=== PATIENT | female | born 1975 | race Caucasian/White ===

== ENCOUNTER 2018-04-23 12:46 | Emergency (ER) | payer BC ==
[2018-04-23 12:54] VITALS: BP 116/69; PULSE 62; RESP 16; TEMP 98.2; O2SAT 98
[2018-04-23] MEDS ORDERED: Tdap Vaccine 0.5 ml Vial (10-64 yrs) IM ONE ×2 (13:15→13:27)
--- NOTE | 2018-04-23 13:24 | ED PDOC ---
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 Patient states she hit toe against the edge of the table yesterday. She has acrylic nail in place over her own toenail and states the acrylic nail and her own toenail are loose and lifting off of her skin. Patient has not taken any meds for pain relief. She is not sure of her last tetanus booster. PMD: Yesenia Robledo Past Medical History Reviewed: Historical Data, Nursing Documentation, Vital Signs Vital Signs: Last Vital Signs Temp 98.2 F 04/23/18 12:50 Pulse 62 04/23/18 12:50 Resp 16 04/23/18 12:50 BP 116/69 04/23/18 12:50 Pulse Ox 98 04/23/18 12:50 - Medical History PMH: No Chronic Diseases - Family History Family History: States: No Known Family Hx - Living Arrangements Living Arrangements: With Family - Social History Current smoker - smoking cessation education provided: No Alcohol: None Drugs: Denies - Home Medications Home Medications: Ambulatory Orders Medication Instructions Recorded Ketorolac Tromethamine [Toradol] 10 mg PO QID PRN #12 tab 08/03/13 Ondansetron [Zofran Odt] 4 mg PO Q8H PRN #15 odt 08/03/13 Famotidine [Pepcid] 20 mg PO BID #10 tab 08/13/14 Prednisone 2 tab PO DAILY #10 tab 08/13/14 Sulfamethoxazole/Trimethopri 1 tab PO BID #14 tab 08/13/14 [Bactrim Ds 800 mg-160 mg] Antipyrine/Benzocaine [Auralgan 2 drop XX BID #1 10 12/14/14 Otic Desi] Ciprofloxacin/Dexamethasone 4 drop OT BID #1 bottle 12/14/14 [Ciprodex 0.3%-0.1% 7.5 Ml] Ibuprofen [Motrin Tab] 800 mg PO Q8 PRN #20 tab 04/23/18 - Allergies Allergies/Adverse Reactions: Allergies Allergy/AdvReac Type Severity Reaction Status Date / Time No Known Allergies Allergy Verified 04/23/18 12:50 Review of Systems ROS Statement: Except As Marked, All Systems Reviewed And Found Negative Musculoskeletal: Positive for: Foot Pain (right great toe injury) Physical Exam - Reviewed Nursing Documentation Reviewed: Yes Vital Signs Reviewed: Yes - Physical Exam Appears: Positive for: Well, Non-toxic, No Acute Distress Head Exam: Positive for: ATRAUMATIC, NORMAL INSPECTION, NORMOCEPHALIC Skin: Positive for: Normal Color. Negative for: Rash Eye Exam: Positive for: Normal appearance Extremity: Positive for: Other (Right great toe is lifted, dried blood noted around eponychial fold, no active bleeding, mildly tenderness to right great toe ) Neurologic/Psych: Positive for: Alert, Oriented (x3) - Laboratory Results Urine POC: Negative - ECG O2 Sat by Pulse Oximetry: 98 (RA) Pulse Ox Interpretation: Normal - Other Rad Right foot x-ray X-Ray: Interpreted by Me, Viewed By Me X-Ray Interpretation: no fx, no dis Medical Decision Making Medical Decision Making: Time: 1314 Initial Impression: 43 year old female with left great toe injury Initial Plan: --Urine --Tetanus/ Reduced Dipht/Acell Pe 0.5ml IM --Foot Left 3 Views [RAD] --Pain meds declined Podiatry resident, Dr. Alaniz at bedside for toenail removal. Procedure was tolerated well by patient. Rx given for motrin. Patient was given wound care instructions and was instructed to follow up next with Dr. Martinez in his office. Scribe Attestation: Documented by Ladonna Almaraz, acting as a scribe for Jihan Estrella PA-C Provider Scribe Attestation: All medical record entries made by the Scribe were at my direction and personally dictated by me. I have reviewed the chart and agree that the record accurately reflects my personal performance of the history, physical exam, medical decision making, and the department course for this patient. I have also personally directed, reviewed, and agree with the discharge instructions and disposition. Disposition - Clinical Impression Clinical Impression: Traumatic loss of toenail, Nail avulsion of toe - Patient ED Disposition Is Patient to be Admitted: No Counseled Patient/Family Regarding: Studies Performed, Diagnosis, Need For Followup, Rx Given - Disposition Referrals: David Martinez DPM [[facility] Pod[facility]] - Disposition: Routine/Home Disposition Time: 14:55 Condition: STABLE Additional Instructions: Keep wound clean and dry. Take rx meds as directed as needed for pain. Follow up next week in office with Dr. Martinez. Prescriptions: Ibuprofen [Motrin Tab] 800 mg PO Q8 PRN #20 tab PRN Reason: Pain, Moderate (4-7) Instructions: Toe Injury (DC) Forms: [facility] [facility] ([employer]), [facility] ED School/Work Excuse Print Language: [place]AST [place]
[2018-04-23] MEDS ORDERED: Lidocaine 1% Inj (20ml) ONE (14:55)
--- NOTE | 2018-04-23 15:53 | RAD ---
PROCEDURE: Radiographs of the right great toe. TECHNIQUE:: AP radiograph of the right foot, with oblique and lateral view of the right great toe. COMPARISON: None. FINDINGS: BONES: Normal. No fracture. JOINTS: Normal. SOFT TISSUES: Normal. OTHER FINDINGS: None. IMPRESSION: Normal right great toe radiographs.
--- NOTE | 2018-04-23 21:32 | CP.PCM.CON ---
History of Present Illness - History of Present Illness History of Present Illness: Podiatry Consult NOte- Dr. Martinez 43F with no PMH with right toenail pain. Patient reports that she stubbed her toe from an elevated floor in which her nail got caught and lifted yesterday. Reports being bloody. Reports throbbing pain to the right toe. Rates the pain 5/ 10. Worse when wearing shoes. Better with rest. Patient states that she has acrylic nails to the big toe nails and is worried about getting an infection which prompt her to the ED visit. Denies numbness or tingling. Denies nausea, fever, shortness of breath, chest pains or chills. PMH: none PSH: none ALL: NKDA FH: none SH: denies drinking, illicit drug use or smoking Past Patient History - Past Social History Alcohol: None Drugs: Denies - PSYCHIATRIC Hx Substance Use: No Meds Home Medications: Home Medication List Medication Instructions Recorded Confirmed Type Ibuprofen [Motrin Tab] 800 mg PO Q8 PRN #20 tab 04/23/18 Rx Allergies/Adverse Reactions: Allergies Allergy/AdvReac Type Severity Reaction Status Date / Time No Known Allergies Allergy Verified 04/23/18 12:50 Physical Exam - Constitutional Appears: Well, Non-toxic, No Acute Distress - Extremities Exam Extremities exam: Negative for: calf tenderness Additional comments: VASC: DP/PT pulses are palpable 2/4 B/L. Cap refill time: < 3 seconds to all digits. Skin temperature warm to cool from proximal to distal. no pitting or non -pitting edema noted DERM: Dried drainage noted from the nail bed, no active bleeding noted. No drainage, no purulence, unable to detect hematoma underneath nail plate secondary to acrylic nails overlying, nail plate detached 70% from the nail bed distally, no inter digital maceration, acrylic nails noted to the halluces, nails 2-5 are cur to hygenic length, no clinical suspicion of active infection, no abscess, no tunneling no fluctanance NEURO: Epicritic and protective sensation intact ORTHO: pain with palpation to the right hallux, - Neurological Exam Neurological exam: Alert, Oriented x3 - Psychiatric Exam Psychiatric exam: Normal Affect, Normal Mood Results - Vital Signs Recent Vital Signs: Last Vital Signs Temp 98.2 F 04/23/18 12:50 Pulse 62 04/23/18 12:50 Resp 16 04/23/18 12:50 BP 116/69 04/23/18 12:50 Pulse Ox 98 04/23/18 15:30 Assessment & Plan - Assessment and Plan (Free Text) Assessment: 43F with no PMH with right traumatic nail avulsion of right hallux Plan: Patient examined and evaluated Discussed plan in detail with attending Dr. Martinez Explained to patient the procedure: removal of entire right hallux toenail. Explained risks, benefits, alternatives and complications. Patient understands and agreeable to removal of right hallux toenail. 6 cc of lidocaine 1% plain given to patient in a local block fashion in a sterile manner In a sterile manner, entire toenail removed at bedside without complications Patient tolerated the procedure well Dressed with bacitracin, cling Advised to clean daily with betadine and bacitracin Pt to follow up in clinic in podiatry clinic/office Dispense surgical shoe Patient to WBAT in surgical shoe Thank you for the consult - Date & Time Date: 04/23/18 Time: 13:35
== END 2018-04-23 15:43 | disposition home or self-care (01) ==
LOC: H.ER 12:46
DX: S91.201A Unspecified open wound of right great toe with damage to nail, initial encounter (principal); W22.8XXA Striking against or struck by other objects, initial encounter; Y92.89 Other specified places as the place of occurrence of the external cause

== ENCOUNTER 2018-12-21 21:29 | Emergency (ER) | payer BC ==
[2018-12-21 21:44] VITALS: PULSE 74; TEMP 97.9
[2018-12-21] MEDS ORDERED: Sodium Chloride 0.9% 1,000 ML IV STA (22:03)
--- NOTE | 2018-12-21 22:06 | ED PDOC ---
HPI: General Adult Time Seen by Provider: 12/21/18 22:02 Chief Complaint (Nursing): Chest Pain Chief Complaint (Provider): CP/SORE THROAT/FATIGUE History Per: Patient (43 Y/O FEMALE RECENT TRAVEL FROM [facility] 12/08 HERE WITH COMPLAINT OF CHEST PAIN AND FATIGUE TODAY. STATES SHE HAS NOTED SORE THROAT/HEADACHE/"TIRED EYES" SINCE ARRIVAL 12/08 BUT DENIES ANY COUGH/FEVER. DENIES ANY SMOKING.) Past Medical History Reviewed: Historical Data, Nursing Documentation, Vital Signs Vital Signs: Last Vital Signs Temp 97.9 F 12/21/18 21:39 Pulse 74 12/21/18 21:39 Resp 16 12/21/18 21:39 BP 117/64 12/21/18 21:39 Pulse Ox 97 12/21/18 21:39 - Family History Family History: States: No Known Family Hx - Immunization History Hx Tetanus Toxoid Vaccination: No Hx Influenza Vaccination: No Hx Pneumococcal Vaccination: No - Home Medications Home Medications: Ambulatory Orders Medication Instructions Recorded Ketorolac Tromethamine [Toradol] 10 mg PO QID PRN #12 tab 08/03/13 Ondansetron [Zofran Odt] 4 mg PO Q8H PRN #15 odt 08/03/13 Famotidine [Pepcid] 20 mg PO BID #10 tab 08/13/14 Prednisone 2 tab PO DAILY #10 tab 08/13/14 Sulfamethoxazole/Trimethopri 1 tab PO BID #14 tab 08/13/14 [Bactrim Ds 800 mg-160 mg] Antipyrine/Benzocaine [Auralgan 2 drop XX BID #1 10 12/14/14 Otic Desi] Ciprofloxacin/Dexamethasone 4 drop OT BID #1 bottle 12/14/14 [Ciprodex 0.3%-0.1% 7.5 Ml] Ibuprofen [Motrin Tab] 800 mg PO Q8 PRN #20 tab 04/23/18 Ibuprofen [Motrin] 600 mg PO Q8 PRN #21 tab 12/22/18 - Allergies Allergies/Adverse Reactions: Allergies Allergy/AdvReac Type Severity Reaction Status Date / Time No Known Allergies Allergy Verified 04/23/18 12:50 Review of Systems ROS Statement: Except As Marked, All Systems Reviewed And Found Negative Constitutional: Positive for: Malaise ENT: Positive for: Throat Pain Cardiovascular: Positive for: Chest Pain Physical Exam - Reviewed Nursing Documentation Reviewed: Yes Vital Signs Reviewed: Yes - Physical Exam Appears: Positive for: Well, Non-toxic, No Acute Distress Head Exam: Positive for: ATRAUMATIC, NORMAL INSPECTION, NORMOCEPHALIC Skin: Positive for: Normal Color, Warm, DRY Eye Exam: Positive for: EOMI, Normal appearance, PERRL ENT: Positive for: Normal ENT Inspection Neck: Positive for: Normal, Painless ROM Cardiovascular/Chest: Positive for: Regular Rate, Rhythm Respiratory: Positive for: CNT, Normal Breath Sounds Gastrointestinal/Abdominal: Positive for: Normal Exam, Soft Back: Positive for: Normal Inspection Extremity: Positive for: Normal ROM Neurologic/Psych: Positive for: Alert, Oriented - Laboratory Results Result Diagrams: 12/21/18 22:40 12/21/18 22:40 - ECG ECG: Positive for: Viewed By Me (NSR 81 BPM; NO ECTOPY; NO ACUTE CHANGES NONSP ECIFIC T WAVE CHANGES V2) O2 Sat by Pulse Oximetry: 97 - Progress ED Course And Treament: CTA CHEST: NO ACUTE PE INFLUENZA A/B NEG RAPID STREP NEG Disposition - Clinical Impression Clinical Impression: Viral illness, Chest pain - Patient ED Disposition Is Patient to be Admitted: No - Disposition Disposition: Routine/Home Disposition Time: 01:38 Condition: FAIR Prescriptions: Ibuprofen [Motrin] 600 mg PO Q8 PRN #21 tab PRN Reason: Pain, Moderate (4-7) Instructions: Viral Pharyngitis, Chest Pain That Is Not Caused by the Heart (DC) Forms: [facility] ED School/Work Excuse Print Language: [place]ESE
[2018-12-21 23:32] LABS: BASO % 0.4 % (0.0-2.0); EOS # 0.9 K/uL (0.0-0.7); EOS % 11.2 % (0.0-4.0); HEMOGLOBIN 12.7 g/dL (12.0-16.0); LYMPH # 3.3 K/uL (1.0-4.3); LYMPH % 40.5 % (20.0-40.0); MEAN CELL VOLUME 87.1 fl (81.0-99.0); MEAN CORPUSCULAR HEMOGLOBIN 29.1 pg (27.0-31.0); MEAN CORPUSCULAR HGB CONC 33.4 g/dL (33.0-37.0); MEAN PLATELET VOLUME 8.4 fl (7.2-11.7); MONO # 0.5 K/uL (0.0-0.8); MONO % 6.3 % (0.0-10.0); NEUT # 3.4 K/uL (1.8-7.0); NEUT % 41.6 % (50.0-75.0); NRBC % 0.1 % (0.0-0.0); RBC 4.37 Mil/uL (3.80-5.20); RED CELL DISTRIBUTION WIDTH 13.5 % (11.5-14.5); WHITE BLOOD COUNT 8.1 K/uL (4.8-10.8)
[2018-12-21 23:42] LABS: ALB/GLOB RATIO 1.1 (1.0-2.1); ALT/SGPT 40 U/L (9-52); AST/SGOT 34 U/L (14-36); BLOOD UREA NITROGEN 15 mg/dl (7-17); CALCIUM 9.3 mg/dL (8.4-10.2); GFR NON-AFRICAN AMERICAN > 60
[2018-12-22] MEDS ORDERED: Sodium Chloride 0.9% 50 ML IV ONE (00:01)
[2018-12-22] MEDS ORDERED: Iodixanol 320 MG/ML 100 ML BOTTLE IV ONE (00:02)
[2018-12-22 02:48] VITALS: BP 106/72; RESP 18; O2SAT 100
--- NOTE | 2018-12-22 08:18 | RAD ---
Date of service: 12/21/2018 HISTORY: CP COMPARISON: Chest radiographs 01/16/2013. TECHNIQUE: Chest PA and lateral FINDINGS: LUNGS: No active pulmonary disease. PLEURA: No significant pleural effusion identified. No pneumothorax apparent. CARDIOVASCULAR: No aortic atherosclerotic calcification present. Normal cardiac size. No pulmonary vascular congestion. OSSEOUS STRUCTURES: No significant abnormalities. VISUALIZED UPPER ABDOMEN: Normal. OTHER FINDINGS: None. IMPRESSION: No interval acute cardiopulmonary disease appreciated.
--- NOTE | 2018-12-22 10:52 | CARD ---
APPROVED REPORT Date of service: 12/21/2018 EKG Measurement Heart [id number] <Conclusion> Normal sinus rhythm Low voltage QRS Nonspecific ST abnormality Abnormal ECG
--- NOTE | 2018-12-22 11:07 | CT ---
Date of service: 12/22/2018 PROCEDURE: CT Chest with contrast (Pulmonary Angiogram) HISTORY: r/o PE COMPARISON: Chest radiographs 12/21/2018. TECHNIQUE: Axial computed tomography images were obtained of the chest in the pulmonary arterial phase of enhancement. Coronal and sagittal reformatted images were created and reviewed. Intravenous contrast dose: Visipaque 320, 80 cc Radiation dose: Total exam DLP = 296.34 mGy-cm. This CT exam was performed using one or more of the following dose reduction techniques: Automated exposure control, adjustment of the mA and/or kV according to patient size, and/or use of iterative reconstruction technique. FINDINGS: PULMONARY ARTERIES: Unremarkable. No pulmonary embolism. AORTA: No acute findings. No thoracic aortic aneurysm. No aortic atherosclerotic calcification or mural plaque present. LUNGS: Unremarkable. No nodule, mass or pulmonary consolidation. PLEURAL SPACES: Unremarkable. No effusion or pneumothorax. HEART: Unremarkable. No cardiomegaly. No significant pericardial effusion. LYMPH NODES: No lymphadenopathy. BONES, CHEST WALL: Unremarkable. No fracture or destructive lesion OTHER FINDINGS: Unremarkable. IMPRESSION: Unremarkable CT pulmonary angiogram. No pulmonary embolus. No infiltrate, pleural or pericardial effusion or significant lymphadenopathy. Concordant preliminary report from [facility], 12/22/2018, 12:48 a.m..
== END 2018-12-22 02:00 | disposition home or self-care (01) ==
LOC: H.ER 21:29
DX: B34.9 Viral infection, unspecified (principal); R07.9 Chest pain, unspecified
CPT/HCPCS: 71046; 71275; 80053; 81025; 84484; 85025; 85378; 87070; 87430; 87804; 93005; 96361; 96374; 99284; J1885; J7030; Q9967